=== PATIENT | female | born 1990 | race Caucasian/White ===

== ENCOUNTER 2018-07-23 21:54 | Emergency (ER) | payer SELFPAY ==
[~2018-07-23] VITALS: Ht 160 cm; Wt 79.8 kg
[2018-07-23 21:56] VITALS: BP 121/72
[2018-07-23 23:46] VITALS: BP 119/72
== END 2018-07-23 23:45 | disposition home or self-care (01) ==
LOC: MED 21:54
DX: O26.892 Other specified pregnancy related conditions, second trimester (principal); T78.40XA Allergy, unspecified, initial encounter; Z3A.14 14 weeks gestation of pregnancy; X58.XXXA Exposure to other specified factors, initial encounter
CPT/HCPCS: 99283; Q0163